=== PATIENT | male | born 1980 | race Caucasian/White ===

== ENCOUNTER 2024-06-02 20:27 | Emergency (ER) | payer BC ==
[2024-06-02] MEDS: Take Home: Ketorolac 10 MG Tab, 4 Tab Pack PO ONE (20:55)
[2024-06-02] MEDS: Take Home: Amoxicillin/Clavulanate K 875-125 MG Tab, 6 Tab Pack PO ONE (20:55)
== END 2024-06-02 20:57 | disposition home or self-care (01) ==
LOC: LL.ED 20:27
DX: K04.7 Periapical abscess without sinus (principal); Z79.899 Other long term (current) drug therapy
CPT/HCPCS: 99282; 99283; A9270-GY